=== PATIENT | male | born 1950 | race Caucasian/White ===

== ENCOUNTER 2018-08-06 05:17 | Day surgery (SDC) | payer BC, MEDICARE ==
[2018-07-29 11:05] LABS: BASOPHILS # (AUTO) 0.1 X10'3 (0-0.2); BASOPHILS % (AUTO) 1.4 % (0-1); EOSINOPHILS # (AUTO) 0.1 X10'3 (0-0.9); EOSINOPHILS % (AUTO) 1.9 % (0-6); HEMATOCRIT 42.1 % (42.0-52.0); HEMOGLOBIN 14.7 g/dl (14.0-17.9); LYMPHOCYTES # (AUTO) 1.6 X10'3 (1.1-4.8); LYMPHOCYTES % (AUTO) 28.3 % (21-51); MEAN CORPUSCULAR HGB CONC 34.9 g/dL (33.0-36.5); MEAN CORPUSCULAR VOLUME 94.6 FL (78-98); MEAN PLATELET VOLUME 7.9 FL (7.4-10.4); MONOCYTES # (AUTO) 0.6 X10'3 (0-0.9); MONOCYTES % (AUTO) 10.2 % (2-12); NEUTROPHILS # (AUTO) 3.3 X10'3 (1.8-7.7); NEUTROPHILS % (AUTO) 58.2 % (42-75); PLATELET COUNT 219 X10'3 (140-440); RED BLOOD COUNT 4.45 X10'6 (4.70-6.10); RED CELL DISTRIBUTION WIDTH 13.4 % (11.5-14.5); WHITE BLOOD COUNT 5.7 X10'3 (4.5-11.0)
[2018-07-29 11:18] LABS: ALBUMIN 3.9 G/DL (3.4-5.0); ANION GAP 7 (8-16); BLOOD UREA NITROGEN 12 MG/DL (7-18); BUN/CREATININE RATIO 11.7 (5.4-32.0); CHLORIDE 107 MMOL/L (99-107); CREATININE 1.03 MG/DL (0.60-1.10); GLUCOSE 91 MG/DL (70-104); POTASSIUM 4.4 MMOL/L (3.5-5.1); SODIUM 141 MMOL/L (135-145); TOTAL CARBON DIOXIDE 27.1 MMOL/L (24-32); eGFR 72 ML/MIN
[2018-07-29 11:22] LABS: PARTIAL THROMBOPLASTIN TIME 27 SECONDS (22-32)
[~2018-08-06] VITALS: Ht 177.8 cm; Wt 79.5 kg
[2018-08-06] VITALS (13 sets, daily range): BP systolic 118–140; BP diastolic 68–92
[2018-08-06] MEDS ORDERED: normal saline 1,000 ML IV SCH (05:30)
[2018-08-06] MEDS ORDERED: LORazepam 0.5 MG tablet PO PRN (05:30)
[2018-08-06] MEDS ORDERED: diphenhydrAMINE 25mg capsule PO PRN (05:30)
[2018-08-06] MEDS ORDERED: LUTE1CAP4 PO (05:35)
[2018-08-06] MEDS ORDERED: LIDOcaine 1% (10mg/ml)w/preservative injection 20ml MDV ONE (06:00)
[2018-08-06] MEDS ORDERED: midazolam 2 mg/2 ml injection ONE (06:00)
[2018-08-06] MEDS ORDERED: fentaNYL/PF 50MCG/1 ML 2ML syringe ONE (06:00)
[2018-08-06] MEDS ORDERED: iohexol 350MG/ML 100ml bottle IV ONE (06:00)
[2018-08-06] MEDS ORDERED: ondansetron/PF 4mg/2ml inj IV PRN (07:20)
[2018-08-06] MEDS ORDERED: OXAZEpam 15mg capsule PO PRN (07:20)
[2018-08-06] MEDS ORDERED: HYDROcodone/acetaminophen 10/325mg tab PO PRN (07:20)
[2018-08-06] MEDS ORDERED: proCHLORperazine 10 MG/2 ml inj IV PRN (07:20)
[2018-08-06] MEDS ORDERED: HYDROcodone/acetaminophen 5mg/325mg tablet PO PRN (07:20)
== END 2018-08-06 10:55 | disposition home or self-care (01) ==
LOC: SSTAY O 05:17
PROVIDERS: ATTEND Internal Medicine Interventional Cardiology
DX: I25.10 Atherosclerotic heart disease of native coronary artery without angina pectoris (principal); I08.1 Rheumatic disorders of both mitral and tricuspid valves; E78.5 Hyperlipidemia, unspecified; G43.909 Migraine, unspecified, not intractable, without status migrainosus; I50.9 Heart failure, unspecified; I11.0 Hypertensive heart disease with heart failure; Z79.899 Other long term (current) drug therapy; Z85.820 Personal history of malignant melanoma of skin
CPT/HCPCS: 36415; 80048; 85025; 85610; 85730; 93458; 99152; A6257; C1769; J1644; J2001; J2250; J3010; J7030; Q0163; Q9967; A4620